=== PATIENT | female | born 1960 | race Caucasian/White ===

== ENCOUNTER 2017-06-26 19:09 | Emergency (ER) | payer OTHER, BC ==
[~2017-06-26] VITALS: Ht 154.9 cm; Wt 43.7 kg
[2017-06-26 19:16] VITALS: TEMP 36.9; Ht 154.9 cm; Wt 43.7 kg
[2017-06-26] MEDS ORDERED: HYDR-4079 PO (20:44)
[2017-06-26] MEDS ORDERED: CLON0.5T3 PO (20:44)
[2017-06-26] MEDS ORDERED: TRAZ100T29 PO (20:44)
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
[2017-06-26 21:21] LABS: BASO % 0.2 %; BASO ABS # 0.01 K/uL (0-0.2); COMPLETE YES; EOS % 2.2 %; HEMATOCRIT 38.2 % (37-47); IG% 0.2 %; LYMPH % 30.1 %; LYMPH ABS # 1.93 K/uL (1.2-3.4); MEAN CORPUSCULAR HEMOGLOBIN 28.6 pg (25-34); MEAN CORPUSCULAR HGB CONC 33.2 g/dl (32-36); MEAN PLATELET VOLUME 9.2 fL (7.4-10.4); MONO % 10.3 %; PLATELET COUNT 276 K/uL (130-400); RED BLOOD COUNT 4.44 M/uL (4.2-5.4); WHITE BLOOD COUNT 6.41 K/uL (4.8-10.8)
[2017-06-26] MEDS: SODIUM CHLORIDE 0.9% 1000ML 1,000 ML IV STA (21:22)
[2017-06-26] MEDS: IBUPROFEN 600 MG TAB PO STA (21:23)
[2017-06-26] MEDS: ACETAMINOPHEN 500 MG TAB PO STA (21:23)
[2017-06-26] MEDS: DEXAMETHASONE SOD INJ 10 MG/ML VIAL IV ONE (21:23)
[2017-06-26] MEDS: COUGH DROP (SUGAR FREE) LOZ 24 LOZ/1 BOX PO STA (21:23)
[2017-06-26 21:41] LABS: BUN/CREATININE RATIO 15.8 (10-20); CREATININE 0.73 mg/dl (0.60-1.20); POTASSIUM 3.7 mmol/L (3.5-5.1)
[2017-06-26] MEDS ORDERED: OPTIRAY 320 IV PRN (22:00)
--- NOTE | 2017-06-26 22:27 | DIAGNOSTIC IMAGING REPORT ---
HEAD COMBO CLINICAL HISTORY: 56 years-old Female presenting with prior issue w/ R TM, drainage, ?cholesteatoma. TECHNIQUE: Multidetector CT imaging of the head was performed before and after the administration of intravenous contrast. IV contrast: 94 mL of Optiray 320. A dose lowering technique was used consistent with the principles of ALARA (as low as reasonably achievable). COMPARISON: None. CT DOSE (mGy.cm): The estimated cumulative dose is 1277.12 mGycm. FINDINGS: Spray Gunner topogram: Unremarkable. Ventricles and sulci normal in size. Brain parenchyma normal in appearance with preserved guerrero-white differentiation. No mass effect or midline shift. No hemorrhage or acute territorial infarct. No extra-axial fluid collection. Postsurgical changes of right mastoidectomy soft tissue density in the region of the tympanic membrane and middle ear. No gross evidence of osseous erosion. Remaining paranasal sinuses and left mastoid air cells clear. Temporal mandibular joints intact. IMPRESSION: 1. No acute intracranial pathology. 2. Postsurgical changes of right mastoidectomy. Apparent soft tissue density in the region of the tympanic membrane and middle ear would be better evaluated with dedicated noncontrast temporal CT or direct visualization. Electronically signed by: Pairsh Seay M.D. 06/26/2017 10:26 PM Dictated Date/Time: 06/26/2017 10:21 PM
[2017-06-26] MEDS ORDERED: NEOM1SUS21 OT (22:53)
[2017-06-26] MEDS ORDERED: CPROT OTR (22:53)
[2017-06-26 23:05] VITALS: BP 103/48; PULSE 67; O2SAT 96
== END 2017-06-26 23:10 | disposition home or self-care (01) ==
LOC: C.EDB 19:12 → C.EDC 23:10
DX: H60.501 Unspecified acute noninfective otitis externa, right ear (principal); F17.200 Nicotine dependence, unspecified, uncomplicated; Z79.899 Other long term (current) drug therapy